=== PATIENT | female | born 1955 | race Hispanic/Latino ===

== ENCOUNTER → 2017-10-20 | Day surgery (SDC) | payer MEDICARE ==
--- NOTE | 2017-10-11 10:57 | Diagnostic Imaging Report ---
PROCEDURE: X-RAY CHEST, TWO VIEWS COMPARISON: Patients [facility], DX, CHEST SINGLE (NOT PORTABLE), 01/12/2017, 15:11. INDICATIONS: PRE OP ROTATOR CUFF FINDINGS: LUNGS: No consolidations or edema. Increased interstitial markings in the lung bases is unchanged. PLEURA: No effusions or pneumothorax. HEART \T\ MEDIASTINUM: The heart is within normal size-limits. BONES \T\ SOFT TISSUES: No acute findings. CONCLUSION: No acute thoracic abnormality. Manny Suero D.O. Dictated by: Manny Suero D.O. on 10/11/2017 at 11:06 Electronically approved by: Manny Suero D.O. on 10/11/2017 at 11:06
[2017-10-11 11:10] LABS: ANION GAP 8.1 mmol/L (8-16); CALCIUM 8.9 mg/dL (8.4-10.2); CREATININE, SERUM 1.03 mg/dL (0.57-1.11); POTASSIUM 4.1 mmol/L (3.5-5.1)
[~2017-10-20] MED LIST: AMBIEN10 MG PO; AMIODARONE HCL200 MG PO; AMLODIPINE BESYL5 MG PO; ASPIR 8181 MG PO; ASPIRIN EC81 MG PO; ASPIRIN325 MG PO; ATIVAN0.5 MG PO; ATROPINE SULFATE 1 MG/ML VIAL ONE; BENZONATATE100 MG PO; CLINDAMYCIN PHOS 900MG/ D5W 50 50 ML IV ONE; CLONAZEPAM1 MG PO; CORDARONE200 MG PO; COUMADIN5 MG PO; DEXAMETHASONE SOD PHOS INJ 4 MG/ML VIAL ONE; DIGOXIN125 MCG PO; EPHEDRINE SULFATE INJ 50 MG/10 ML SYR ONE; FENTANYL CITRATE/PF 100MCG/2 ML INJ ONE; HYDROCODONE PO; IBUPROFEN800 MG PO; KETOROLAC TROMETHAMINE 30 MG/ML VIAL ONE; KLONOPIN1 MG PO; LIDOCAINE HCL 2% LOCAL INJ 5 ML SDV VIAL INJ ONE; LOSARTAN POTASS50 MG PO; METFORMIN HCL500 MG PO; METOPROLOL TAR100 MG PO; METOPROLOL TART25 MG PO; MIDAZOLAM HCL 2 MG/2 ML VIAL ONE; MULTAQ400 MG PO; NORCO 10-325 T1 EACH PO; NORCO 5-325 TA1 EACH PO; OMEPRAZOLE40 MG PO; ONDANSETRON HCL INJ 2 MG/ML VIAL ONE; PEPCID20 MG PO; PHENYLEPHRINE HCL 1% 10 MG/ML VIAL ONE; PREDNISONE20 MG PO; PRILOSEC20 MG PO; PROPOFOL IV EMULSION 10 MG/ML 20 ML VIAL ONE; ROCURONIUM BROMIDE 10 MG/ML 5ML VIAL ONE; SEVOFLURANE INHAL SOLN 250 ML PEN BTL ONE; SUCCINYLCHOLINE 200 MG/10 ML SYR ONE; TRICOR145 MG PO; TYLENOL325 MG PO; ULTRAM 50MG50 MG PO; Z REQUIP PO; Z.0.AMLODIPINE BESY1 PO; Z.0.LOSARTAN POTAS10 PO; Z.0.SEROQUEL50 MG PO
--- NOTE | 2017-10-21 09:54 | Operative Report ---
DATE OF PROCEDURE: October 20, 2017 PREOPERATIVE DIAGNOSES 1. Left rotator cuff tear. 2. Left acromioclavicular joint arthrosis. POSTOPERATIVE DIAGNOSES 1. Chronic left shoulder rotator cuff tear. 2. Left shoulder biceps tendon tear. 3. Left shoulder synovitis. 4. Left shoulder acromioclavicular joint arthrosis. OPERATIONS/PROCEDURES PERFORMED 1. Patient underwent left shoulder examination under anesthesia. 2. Left shoulder arthroscopy. 3. Left shoulder arthroscopic debridement of synovitis. 4. Left shoulder arthroscopic biceps tenolysis. 5. Left shoulder arthroscopic rotator cuff reconstruction. 6. Left shoulder arthroscopic subacromial decompression and acromioplasty. 7. Left shoulder arthroscopic distal clavicle resection. [employer]END[employer] WORKER: Mara Baptiste ANESTHESIA: General endotracheal intubation anesthesia, as well as a regional block. BLOOD LOSS: Minimal. IV FLUIDS: As per the anesthesia record. BRIEF DESCRIPTION OF THE PATIENT'S OPERATIVE PROCEDURE: Mr. Rasmussen was taken to the operating room and placed in the supine position on the operating table. Following induction of general anesthesia, as well as endotracheal intubation, the patient was placed in a beach chair type position. The patient's left upper extremity was examined under anesthesia, and he was found to have only mild restrictions of range of motion of the left shoulder joint. There was no evidence of instability or mechanical symptoms during passive range of motion of the shoulder. The patient's upper extremity was prepped and draped in a standard surgical fashion. A standard posterolateral and anterior portals were created without difficulty. The scope was placed in the shoulder joint atraumatically. Examination of the glenohumeral articulation demonstrated no significant evidence of chondromalacia. There was diffuse synovitis in the shoulder joint. There were no loose bodies in the shoulder joint. Examination of the biceps tendon demonstrated a near complete intra-articular tear of the biceps tendon. There was also a large full-thickness rotator cuff tear with significant damage to the associated rotator cuff tissue. A shaver was placed in the shoulder joint and synovitis was debrided. The patient's biceps tendon was also further debrided at this time. Thorough probing of the biceps tendon demonstrated less than 10% of the fibers of the biceps tendon remained intact. The majority of the remaining biceps tendon had retracted outside the shoulder joint. The decision was therefore made to provide the patient a biceps tenolysis. A biter was used to release the biceps tendon from its attachment in the superior edge of the glenoid. The shaver was also used to debride the articular surface side of the rotator cuff tendon. Scar tissue was thus removed from the torn rotator cuff. The shaver was then used to debride the greater tuberosity and a thin tana remaining rotator cuff tissue was elevated from its attachment to the outer edge of the greater tuberosity. The bone was then scored to a bleeding bony bed. The shoulder was then deflated of its sterile normal saline. The scope was placed in the subacromial space and significant bursal inflammation was encountered. A lateral portal was created through an outside-in technique. A bursectomy was performed thus exposing the bursal surface of the rotator cuff injury. Again, significant injury to the rotator cuff was identified and further debridement of the rotator cuff was performed to obtain a healthy rotator cuff tissue. The insertion site was further debrided to a bleeding bony bed. Given the size of the tear, 2 suture anchors were inserted into the greater tuberosity, and the suture arms from those anchors were then woven through the rotator cuff tissue to advance the rotator cuff tissue into its normal insertion site. The rotator cuff was then thoroughly evaluated, and found to be firmly reattached to the tuberosity. There was a significantly downward sloping acromion with multiple osteophytes. A bur was used to provide the patient an acromioplasty at this time. The coracoacromial ligament was also resected at this time. The anterior portal was then transferred to the subacromial space at the level of the acromioclavicular joint. Soft tissues were debrided free from the acromioclavicular joint, and the patient had marked spurring of the undersurface of the acromion, as well as arthritic changes in the joint itself. A bur was then used to resect a 1-cm section of the distal clavicle. The scope was transferred to the anterior portal to confirm completion of the distal clavicectomy. The shoulder was then deflated of its sterile normal saline. The portal sites were closed. Sterile dressings were applied. The patient was placed in a shoulder immobilizer, awakened and taken to the postanesthesia care unit in stable condition. Mara Baptiste acted as assistant community manager for this case and was necessary for both prepping and draping the patient, as well as positioning the arm and the passage of sutures that allowed this case to be successful. STACIE: 10/21/2017 08:22 Job#: [id number] RI
== END | disposition home or self-care (01) ==
LOC: OR 08:29
PROVIDERS: ATTEND Specialist
DX: M75.122 Complete rotator cuff tear or rupture of left shoulder, not specified as traumatic (principal); M19.012 Primary osteoarthritis, left shoulder; S46.212A Strain of muscle, fascia and tendon of other parts of biceps, left arm, initial encounter; M65.812 Other synovitis and tenosynovitis, left shoulder; M25.712 Osteophyte, left shoulder; I25.10 Atherosclerotic heart disease of native coronary artery without angina pectoris; I48.91 Unspecified atrial fibrillation; E11.22 Type 2 diabetes mellitus with diabetic chronic kidney disease; I12.9 Hypertensive chronic kidney disease with stage 1 through stage 4 chronic kidney disease, or unspecified chronic kidney disease; N18.9 Chronic kidney disease, unspecified; G47.33 Obstructive sleep apnea (adult) (pediatric); J44.9 Chronic obstructive pulmonary disease, unspecified; F17.210 Nicotine dependence, cigarettes, uncomplicated; V03.90XA Pedestrian on foot injured in collision with car, pick-up truck or van, unspecified whether traffic or nontraffic accident, initial encounter; Z01.812 Encounter for preprocedural laboratory examination; Z01.818 Encounter for other preprocedural examination; Z79.82 Long term (current) use of aspirin
CPT/HCPCS: 29824; 29826; 29827; 36415 ×2; 71046; 80048; 82948; C1751; J0461; J1100; J1885; J2001; J2250; J2370; J2405

== ENCOUNTER 2018-05-18 10:28 | Inpatient (IN) | payer MEDICARE, OTHER ==
[~2018-05-18] VITALS: Ht 177.8 cm; Wt 120.5 kg
[~2018-05-18 10:28] MED LIST changes: -ATROPINE SULFATE 1 MG/ML VIAL ONE; -CLINDAMYCIN PHOS 900MG/ D5W 50 50 ML IV ONE; -DEXAMETHASONE SOD PHOS INJ 4 MG/ML VIAL ONE; -EPHEDRINE SULFATE INJ 50 MG/10 ML SYR ONE; -FENTANYL CITRATE/PF 100MCG/2 ML INJ ONE; -KETOROLAC TROMETHAMINE 30 MG/ML VIAL ONE; -LIDOCAINE HCL 2% LOCAL INJ 5 ML SDV VIAL INJ ONE; -MIDAZOLAM HCL 2 MG/2 ML VIAL ONE; -ONDANSETRON HCL INJ 2 MG/ML VIAL ONE; -PHENYLEPHRINE HCL 1% 10 MG/ML VIAL ONE; -PROPOFOL IV EMULSION 10 MG/ML 20 ML VIAL ONE; -ROCURONIUM BROMIDE 10 MG/ML 5ML VIAL ONE; -SEVOFLURANE INHAL SOLN 250 ML PEN BTL ONE; -SUCCINYLCHOLINE 200 MG/10 ML SYR ONE
[2018-05-18] MEDS ORDERED: DILTIAZEM HCL VIAL 5 ML ONE (10:40)
[2018-05-18] MEDS ORDERED: DILTIAZEM HCL 5 MG/ML 5 ML VIAL IV ONE (11:00)
[2018-05-18 11:23] LABS: BASOPHILS # (AUTO) 0.1 (0.0-0.1); BASOPHILS % 0.5 % (0.0-1.0); EOSINOPHILS # (AUTO) 0.1 (0.0-0.4); EOSINOPHILS % 0.9 % (0.0-6.0); HEMATOCRIT 48.7 % (38.2-49.6); HEMOGLOBIN 16.7 g/dL (14.0-18.0); LYMPHOCYTES # (AUTO) 2.8 (1.0-3.2); LYMPHOCYTES % 26.2 % (18.0-39.1); MEAN CORPUSCULAR HEMOGLOBIN 31.1 pg (28-32); MEAN CORPUSCULAR HGB CONC 34.3 g/dL (31-35); MEAN CORPUSCULAR VOLUME 90.7 fL (81-99); MONOCYTES # (AUTO) 0.9 (0.2-0.8); NEUTROPHILS # (AUTO) 6.8 (2.1-6.9); NEUTROPHILS % 64.1 % (38.7-80.0); PLATELET COUNT 330 x10e3/uL (140-360); RED BLOOD COUNT 5.37 x10e6/uL (4.3-5.7)
[2018-05-18 11:27] LABS: PROTHROMBIN TIME 12.4 seconds (11.9-14.5)
[2018-05-18 11:28] LABS: PARTIAL THROMBOPLASTIN TIME 25.4 seconds (23.8-35.5)
[2018-05-18 11:36] LABS: ALANINE AMINOTRANSFERASE 38 IU/L (0-55); ALKALINE PHOSPHATASE 65 IU/L (40-150); ANION GAP 17.6 mmol/L (8-16); BLOOD UREA NITROGEN 14 mg/dL (7-26); BUN/CREATININE RATIO 13 (6-25); CALCIUM 9.9 mg/dL (8.4-10.2); CARBON DIOXIDE 22 mmol/L (22-29); CHLORIDE 104 mmol/L (98-107); CREATINE KINASE 89 IU/L (30-200); CREATININE, SERUM 1.12 mg/dL (0.72-1.25); EST GLOMERULAR FILTRATION RATE > 60 ML/MIN (60-); GLUCOSE 162 mg/dL (74-118); MAGNESIUM 1.8 MG/DL (1.3-2.1); POTASSIUM 4.6 mmol/L (3.5-5.1); SODIUM 139 mmol/L (136-145)
--- NOTE | 2018-05-18 11:42 | Diagnostic Imaging Report ---
PROCEDURE: A single AP view of the chest. COMPARISON: Chest radiograph 10/11/17 INDICATIONS: CHEST PAIN FINDINGS: Lines/tubes: None. Lungs: Moderate lung volumes. Mild patchy left basilar opacity, likely atelectasis. There is no evidence of pneumonia or pulmonary edema. Pleura: There is no pleural effusion or pneumothorax. Heart and mediastinum: The cardiomediastinal silhouette is unremarkable. Bones: No acute bony abnormality. IMPRESSION: No acute cardiopulmonary disease. Dictated by: JEOVANNY VELA M.D. on 05/18/2018 at 11:48 Electronically approved by: JEOVANNY VELA M.D. on 05/18/2018 at 11:48
[2018-05-18] MEDS ORDERED: ASPIRIN 81 MG CHEW TAB PO ONE (12:15)
[2018-05-18] MEDS ORDERED: AMIODARONE HCL 900 MG in DEXTROSE 5% 500ML 500 ML IV ONE (12:30)
[2018-05-18] MEDS ORDERED: AMIODARONE HCL 150 MG/100 ML BAG IV ONE (12:30)
[2018-05-18] MEDS ORDERED: LOSARTAN POTAS100 MG PO (14:02)
[2018-05-18] MEDS ORDERED: METFORMIN HCL500 MG PO (14:02)
[2018-05-18 14:22] LABS: CHOL/HDL RATIO 2.5 (3.9-4.7)
[2018-05-18 14:42] LABS: THYROID STIMULATING HORMONE 2.051 uIU/mL (0.350-4.940)
[2018-05-18] MEDS: HYDROCODONE/APAP 10MG-325MG TAB PO PRN ×2 (15:03→20:45)
[2018-05-18] MEDS ORDERED: METOPROLOL TARTRATE INJ 1 MG/ML VIAL IV PRN (15:30)
[2018-05-18] MEDS: METOPROLOL TARTRATE 25 MG TAB PO SCH (15:48)
[2018-05-18] MEDS: FAMOTIDINE 20 MG TAB PO SCH (15:51)
[2018-05-18] MEDS: ENOXAPARIN SODIUM INJ 100 MG/ML SYR SC SCH (15:51)
--- NOTE | 2018-05-18 15:54 | History and Physical ---
PRIMARY CARE PHYSICIAN: Dr. Alanis. ELECTRONIC PLOTTING SYSTEM OPERATOR: Dr. Story. CHIEF COMPLAINT: Rapid heart rate, chest palpitation. HISTORY OF PRESENT ILLNESS: This is a 63-year-old man with history of paroxysmal atrial fibrillation, who underwent heart ablation 3 times in the past. Last ablation about 2 years ago. Now developing chest palpitation at home with chest discomfort. Family brought him to the hospital. Here, he was found to be in atrial fibrillation with rapid ventricular response. He was admitted for further evaluation and management. PAST MEDICAL HISTORY: Diabetes mellitus type 2, hypertension, sleep apnea not on CPAP, cigarette abuse, atrial fibrillation status post ablation times 3, last ablation 2 years ago, not on anticoagulation, right eye blindness, chronic back pain, GERD, insomnia, congestive heart failure which is likely diastolic, [id number] aortic regurgitation, and moderate pulmonary hypertension. PAST SURGICAL HISTORY: Back surgery times 8, left knee meniscus repair, rotator cuff repair, cardiac ablation times 3 for atrial fibrillation, right eye surgery. ALLERGIES: PER ELECTRONIC MEDICAL RECORD. FAMILY HISTORY/SOCIAL HISTORY: Patient lives with her friend. Has 5 children. No alcohol or illicits. He quit cigarettes 4 years ago. MEDICATIONS: Per electronic medical record. REVIEW OF SYSTEMS: Denies any dizziness, fever, chills, sweats, nausea, vomiting, diarrhea, leg pain, back pain, headache, blurred vision, or vision changes. PHYSICAL EXAMINATION VITAL SIGNS: Have been reviewed. GENERAL: A tired-appearing man resting in bed. HEENT: Anicteric. Pupils reactive to light. Right eye is opaque. CARDIOVASCULAR: Rapid heart rate. LUNGS: He has bilateral breath sounds. ABDOMEN: Soft, nontender and nondistended. EXTREMITIES: He has trace edema. SKIN: Dry. PSYCHIATRIC: Flat. NEUROLOGICAL: Alert and appropriate. Moving all extremities. LABS: Reviewed. MEDICATIONS: Reviewed. ASSESSMENT: This is a 63-year-old man with 1. Atrial fibrillation with rapid ventricular response. 2. Diabetes mellitus type 2. 3. Hypertension. 4. History of cigarette use. 5. Sleep apnea. 6. Gastroesophageal reflux disease. 7. Insomnia. 8. Chronic back pain. 9. Moderate pulmonary hypertension. 10. Tbxv-iz-mzfldzrr aortic regurgitation history. 11. Congestive heart failure likely diastolic. 12. Hyperlipidemia. 13. Insomnia. 14. Peripheral edema. 15. Obesity. Body mass index of 39.6. PLAN 1. Continue amiodarone. 2. Follow up echocardiogram. 3. Follow up cardiology recommendation. 4. Continue fenofibrate. 5. Obtain lipid panel. 6. Patient has mild peripheral edema. We will monitor. 7. Obtain TSH, hemoglobin A1c and lipid panel. 8. Caloric restriction. 9. Lifestyle changes outpatient. 10. We will add Pepcid for GI prophylaxis and I will defer anticoagulant needs to cardiology. Job#: [id number] VAS
--- NOTE | 2018-05-18 16:29 | Consultation ---
DATE OF CONSULTATION: May 18, 2018 CARDIOLOGY CONSULTATION REASON FOR CONSULTATION: AFib with RVR. REQUESTING PHYSICIAN: Dr. Oscar Ervin. HISTORY OF PRESENT ILLNESS: This is a pleasant, obese 63-year-old male that presented with palpitations. According to the patient, today he started having palpitation. He felt like his chest was about to jump out, that he decided to come into the emergency room for evaluation. He stated that he felt like he was going to pass out, accompanied with dizziness. He has a history of AFib, had ablation and cardioversion in the past, used to be on anticoagulation which was stopped. He stated also he has been going through a lot of stress at home and unable to sleep at night. He denied any chest pain, any diaphoresis or headache. Troponin was negative x1. BNP was 193, and chest x-ray showed no acute cardiopulmonary disease. PAST MEDICAL HISTORY: Hypertension, AFib status post ablation and cardioversion, CHF, diabetes, chronic back pain, COPD, obesity, insomnia and BPH. PAST SURGICAL HISTORY: Right eye surgery, prostate surgery, cardioversion and ablation in the past. FAMILY HISTORY: Noncontributory. SOCIAL HISTORY: Lives at home with the . No smoking, no drinking. MEDICATIONS: See med list. ALLERGIES: HE IS ALLERGIC TO CEFTRIAXONE AND IOHEXOL. REVIEW OF SYSTEMS: Negative except those mentioned above. He is positive for AFib with RVR. PHYSICAL EXAMINATION VITAL SIGNS: Temperature 97.8, heart rate 120, blood pressure 138/106, respiration 20, oxygen saturation 97% on 2 liters nasal cannula. GENERAL: He is morbidly obese, awake, alert, oriented x3. HEENT: Mucous membrane moist. NECK: Supple. LUNGS: Bilaterally clear to auscultation. CARDIOVASCULAR: Irregularly irregular. ABDOMEN: Soft. NEUROLOGICAL: Intact. EXTREMITIES: With no edema. LABS: Sodium 139, potassium 4.6, chloride 104, CO2 22, BUN 14, creatinine 1.12, glucose 162. White blood cell 10.57, red blood cell 5.37, hemoglobin 16.7, hematocrit 48.7, platelet 330. IMPRESSION 1. Atrial fibrillation with rapid ventricular response. 2. Diabetes. 3. Hypertension. 4. Obesity. 5. Hyperlipidemia. 6. History of anxiety and insomnia. 7. History of cardioversion and ablation in the past. ASSESSMENT/PLAN 1. Will go ahead and get an echocardiogram to assess the LV and the valve function. 2. Will check his TSH and magnesium. 3. Will continue on amiodarone drip. Will put him on Lovenox 1 mg/kg q.12 h. Will continue beta tika IV and p.o. 4. Further cardiac workup pending clinical course. Thank you for this consultation. Dictated by: Cuhck Alvarez NP Job#: [id number] EV
[2018-05-18 20:02] VITALS: BP 84/69
[2018-05-18 20:10] LABS: CREATINE KINASE MB 1.5 ng/mL (0-5.0)
[2018-05-18 21:00] VITALS: BP 84/69
[2018-05-18] MEDS ORDERED: CLONAZEPAM 1 MG TAB PO PRN (22:15)
[2018-05-18] MEDS: ZOLPIDEM TARTRATE 10 MG TAB PO SCH (23:55)
[2018-05-19] VITALS (8 sets, daily range): BP systolic 84–115; BP diastolic 52–92
[2018-05-19] MEDS: HYDROCODONE/APAP 10MG-325MG TAB PO PRN ×3 (02:38→21:39)
[2018-05-19] MEDS: ENOXAPARIN SODIUM INJ 100 MG/ML SYR SC SCH ×2 (04:00→16:30)
[2018-05-19 05:46] LABS: BASOPHILS # (AUTO) 0.1 (0.0-0.1); BASOPHILS % 0.8 % (0.0-1.0); EOSINOPHILS # (AUTO) 0.1 (0.0-0.4); EOSINOPHILS % 1.5 % (0.0-6.0); HEMATOCRIT 46.7 % (38.2-49.6); HEMOGLOBIN 15.7 g/dL (14.0-18.0); LYMPHOCYTES # (AUTO) 2.2 (1.0-3.2); LYMPHOCYTES % 28.5 % (18.0-39.1); MEAN CORPUSCULAR HEMOGLOBIN 31.3 pg (28-32); MEAN CORPUSCULAR HGB CONC 33.6 g/dL (31-35); MONOCYTES # (AUTO) 0.8 (0.2-0.8); MONOCYTES % 9.8 % (4.4-11.3); NEUTROPHILS # (AUTO) 4.6 (2.1-6.9); NEUTROPHILS % 58.4 % (38.7-80.0); PLATELET COUNT 264 x10e3/uL (140-360); RED BLOOD COUNT 5.02 x10e6/uL (4.3-5.7); RED CELL DISTRIBUTION WIDTH 13.2 % (11.7-14.4)
[2018-05-19 06:35] LABS: ALANINE AMINOTRANSFERASE 31 IU/L (0-55); ALBUMIN 3.4 g/dL (3.5-5.0); ALBUMIN/GLOBULIN RATIO 1.1 (0.8-2.0); ALKALINE PHOSPHATASE 57 IU/L (40-150); ANION GAP 13.6 mmol/L (8-16); BLOOD UREA NITROGEN 21 mg/dL (7-26); BUN/CREATININE RATIO 21 (6-25); CALCIUM 9.3 mg/dL (8.4-10.2); CARBON DIOXIDE 24 mmol/L (22-29); CHLORIDE 104 mmol/L (98-107); CREATINE KINASE 102 IU/L (30-200); CREATININE, SERUM 1.01 mg/dL (0.72-1.25); EST GLOMERULAR FILTRATION RATE > 60 ML/MIN (60-); GLUCOSE 149 mg/dL (74-118); POTASSIUM 3.6 mmol/L (3.5-5.1); SODIUM 138 mmol/L (136-145)
[2018-05-19] MEDS ORDERED: DIGOXIN INJ 0.25 MG/ML 2 ML AMP IV NR (08:15)
[2018-05-19] MEDS: FAMOTIDINE 20 MG TAB PO SCH ×2 (08:24→17:23)
[2018-05-19] MEDS: METOPROLOL TARTRATE 25 MG TAB PO SCH ×2 (08:24→17:24)
[2018-05-19] MEDS: AMIODARONE HCL 200 MG TAB PO SCH (08:24)
[2018-05-19] MEDS: FENOFIBRATE 145 MG TAB PO SCH (08:29)
[2018-05-19] MEDS ORDERED: DEXTROSE 50% SYRINGE 50 ML IV PRN (08:30)
--- NOTE | 2018-05-19 08:43 | Progress Note ---
DATE: May 19, 2018 TIME: 08:08 a.m. OVERNIGHT: No events. On amiodarone drip. REVIEW OF SYSTEMS: Denies any dizziness, chest pain, shortness of breath, fever, chills, sweats, nausea, vomiting, diarrhea, headache, back pain. PHYSICAL EXAMINATION: VITAL SIGNS: Reviewed. GENERAL APPEARANCE: Tired-appearing man resting in bed. HEENT: Anicteric. Right eye opaque. CARDIOVASCULAR: Normal S1 and S2. Rapid heart rate. LUNGS: Moderate breath sounds. ABDOMEN: Soft, nontender. EXTREMITIES: Trace edema. SKIN: Dry. PSYCHIATRIC: Flat affect. NEUROLOGICAL: Alert and appropriate. LABS: Reviewed. MEDICATIONS: Reviewed. ASSESSMENT: A 63-year-old man. 1. Atrial fibrillation with rapid ventricular response. 2. Diabetes mellitus type 2. Hemoglobin A1c is 6.6 and LDL 85. 3. Hypertension. 4. History of cigarette use. 5. Sleep apnea. 6. Gastroesophageal reflux disease. 7. Insomnia. 8. Chronic back pain. 9. Moderate pulmonary hypertension. 10. Congestive heart failure, diastolic. 11. Hyperlipidemia. 12. Peripheral edema. 13. Obesity. Body mass index 39.6. PLAN: 1. Continue amiodarone drip. 2. Weight loss outpatient. 3. Follow up echocardiogram. 4. Follow up cardiology recommendations. 5. TSH was normal. 6. Continue Lovenox treatment dose. Continue Pepcid for prophylaxis. Job#: [id number]
[2018-05-19] MEDS: INSULIN REGULAR, HUMAN 100 UNIT/1 ML 3ML VIAL SQ SCH ×3 (11:30→20:50)
[2018-05-19] MEDS ORDERED: DIGOXIN INJ 0.25 MG/ML 2 ML AMP IV ONE (12:45)
[2018-05-19] MEDS: CLONAZEPAM 1 MG TAB PO PRN (12:47)
[2018-05-19] MEDS: ZOLPIDEM TARTRATE 10 MG TAB PO SCH (20:49)
[2018-05-20] VITALS (9 sets, daily range): BP systolic 98–128; BP diastolic 68–92
[2018-05-20] MEDS: ENOXAPARIN SODIUM INJ 100 MG/ML SYR SC SCH (04:00)
[2018-05-20] MEDS: LIDOCAINE 5% PATCH TP SCH ×2 (04:40→07:50)
[2018-05-20] MEDS: FAMOTIDINE 20 MG TAB PO SCH ×2 (07:48→16:09)
[2018-05-20] MEDS: INSULIN REGULAR, HUMAN 100 UNIT/1 ML 3ML VIAL SQ SCH ×4 (07:59→22:25)
[2018-05-20] MEDS: FENOFIBRATE 145 MG TAB PO SCH (08:00)
[2018-05-20] MEDS: DIGOXIN 0.125 MG TAB PO SCH (08:00)
[2018-05-20] MEDS: METOPROLOL TARTRATE 25 MG TAB PO SCH ×2 (08:00→17:21)
[2018-05-20] MEDS: AMIODARONE HCL 200 MG TAB PO SCH (08:00)
[2018-05-20] MEDS: HYDROCODONE/APAP 10MG-325MG TAB PO PRN ×3 (09:39→22:02)
[2018-05-20] MEDS: CLONAZEPAM 1 MG TAB PO PRN (16:09)
[2018-05-20] MEDS: RIVAROXABAN 20 MG TABLET PO SCH (16:09)
--- NOTE | 2018-05-20 20:39 | Progress Note ---
DATE: May 20, 2018 TIME: 6 a.m. OVERNIGHT: Heart rate remains elevated at times. REVIEW OF SYSTEMS: Denies any dizziness, chest pain. Denies any nausea, vomiting, diarrhea, headache, blurred vision. PHYSICAL EXAMINATION VITAL SIGNS: Reviewed. GENERAL: A tired-appearing man resting in bed. HEENT: Anicteric. CARDIOVASCULAR: Normal S1 and S2. Rapid heart rate. LUNGS: Moderate breath sounds. ABDOMEN: Soft, nontender, nondistended. EXTREMITIES: No edema. SKIN: Dry. PSYCHIATRIC: Flat affect. LABS: Reviewed. MEDICATIONS: Reviewed. ASSESSMENT: A 63-year-old man. 1. Atrial fibrillation with rapid ventricular response. 2. Diabetes mellitus, type 2. Hemoglobin A1c is 6.6 and LDL 85. 3. Hypertension. 4. History of cigarette use. 5. Sleep apnea. 6. Gastroesophageal reflux disease. 7. Insomnia. 8. Chronic back pain. 9. Moderate pulmonary hypertension. 10. Congestive heart failure, diastolic. 11. Hyperlipidemia. 12. Peripheral edema. 13. Obesity. Body mass index 39.6. PLAN 1. Continue AV blocking agents. 2. Defer to cardiology regarding management. 3. TSH was normal. 4. Continue anticoagulant treatment dose. Job#: [id number]
[2018-05-20] MEDS: ZOLPIDEM TARTRATE 10 MG TAB PO SCH (22:30)
[2018-05-21] VITALS (8 sets, daily range): BP systolic 89–148; BP diastolic 68–104
[2018-05-21] MEDS: CLONAZEPAM 1 MG TAB PO PRN ×2 (00:15→14:06)
[2018-05-21] MEDS: METOPROLOL TARTRATE 25 MG TAB PO SCH ×5 (05:55→23:16)
[2018-05-21] MEDS: HYDROCODONE/APAP 10MG-325MG TAB PO PRN ×3 (05:56→23:10)
[2018-05-21] MEDS: INSULIN REGULAR, HUMAN 100 UNIT/1 ML 3ML VIAL SQ SCH ×4 (07:22→21:03)
[2018-05-21] MEDS: FAMOTIDINE 20 MG TAB PO SCH ×2 (07:48→16:29)
[2018-05-21] MEDS: AMIODARONE HCL 200 MG TAB PO SCH (08:01)
[2018-05-21] MEDS: DIGOXIN 0.125 MG TAB PO SCH (08:01)
[2018-05-21] MEDS: FENOFIBRATE 145 MG TAB PO SCH (08:01)
[2018-05-21] MEDS: LIDOCAINE 5% PATCH TP SCH (08:01)
[2018-05-21] MEDS: RIVAROXABAN 20 MG TABLET PO SCH (16:29)
[2018-05-21] MEDS: ZOLPIDEM TARTRATE 10 MG TAB PO SCH (23:16)
[2018-05-22] MEDS: HYDROCODONE/APAP 10MG-325MG TAB PO PRN ×3 (05:40→18:43)
[2018-05-22] MEDS: METOPROLOL TARTRATE 25 MG TAB PO SCH ×3 (05:43→17:37)
[2018-05-22 07:01] VITALS: BP 147/94
[2018-05-22] MEDS: INSULIN REGULAR, HUMAN 100 UNIT/1 ML 3ML VIAL SQ SCH ×4 (08:05→21:35)
[2018-05-22] MEDS: FAMOTIDINE 20 MG TAB PO SCH ×2 (08:05→17:37)
[2018-05-22] MEDS: DIGOXIN 0.125 MG TAB PO SCH (08:32)
[2018-05-22] MEDS: LIDOCAINE 5% PATCH TP SCH (08:32)
[2018-05-22] MEDS: FENOFIBRATE 145 MG TAB PO SCH (08:32)
[2018-05-22] MEDS: AMIODARONE HCL 200 MG TAB PO SCH (08:32)
[2018-05-22 09:13] VITALS: BP 147/94
--- NOTE | 2018-05-22 12:22 | Progress Note ---
DATE: Tuesday, May 22, 2018 TIME: 11:15 a.m. OVERNIGHT: No acute events. Patient with intermittent tachycardia with exertion. Afib continues. REVIEW OF SYSTEMS: The patient denies dizziness, chest pain. Slight shortness of breath upon exertion. Denies nausea, vomiting, diarrhea, headache, blurry vision or claudication. PHYSICAL EXAMINATION VITAL SIGNS: T 97.7, P 92, R 17, SpO2 96% on RA. GENERAL APPEARANCE: This is a tired-appearing man sitting on side of bed. HEENT: Normocephalic. Oral mucosa moist and intact. Trachea is midline. No JVD. CV: S1 and S2 auscultated without clicks, murmurs or rubs. Irregular rate noted. LUNGS: Bilateral breath sounds CTA with moderate excursion. ABDOMEN: Soft, nontender, nondistended. EXTREMITIES: No edema. SKIN: Dry. PSYCHIATRIC: Flat affect. LABS: Reviewed. MEDICATIONS 1. Amiodarone 400 mg p.o. daily. 2. Lidocaine patch daily. 3. Digoxin 0.125 mg q.a.m. 4. TriCor 145 p.o. daily. 5. Sliding-scale regular insulin a.c. and at bedtime. 6. Pepcid 20 mg b.i.d. a.c. meals. 7. Metoprolol 12.5 q.6 h. p.o. 8. P.R.N. [place] 10. 9. P.R.N. Ambien. 10. Xarelto 20 mg daily at 5 p.m. 11. P.R.N. Klonopin. 12. P.R.N. metoprolol. 13. P.R.N. D50. ASSESSMENT AND PLAN: This is a 63-year-old man with: 1. Atrial fibrillation with rapid ventricular response. Continue amiodarone, digoxin, metoprolol and defer to cardiology for management. 2. Diabetes mellitus, type 2. Admission A1c was 6.6 and LDL 85. Continue TriCor. 3. Hypertension. Continue medications. 4. History of cigarette use. 5. Sleep apnea. I discussed at length with the family the possibility of CPAP. The spouse and the patient indicated some problem with insurance coverage. Follow up as outpatient. 6. Gastroesophageal reflux disease. Pepcid. 7. Insomnia. P.R.N. Ambien. 8. Chronic back pain. P.R.N. [place]. 9. Moderate pulmonary hypertension. 10. Congestive heart failure, diastolic. Monitor I and O. 11. Hyperlipidemia. TriCor. 12. Peripheral edema. Monitor. 13. Obesity. Body mass index 39.6. Outpatient calorie count. The patient would benefit significantly from weight loss. 14. Prophylaxis: Patient is to continue with Pepcid and Xarelto. 15. Disposition: Discussed at length with the patient, spouse and RN. Possible SAVITA with cardioversion pending tomorrow, 05/23/2018. If successful, the patient can continue treatment as an outpatient per cardiology recommendations. We will obtain a.m. labs prior to procedure in a.m. Dictated by Jacki Zhao NP. Job#: [id number]
[2018-05-22 12:37] VITALS: BP 135/97
[2018-05-22 16:30] VITALS: BP 117/94
[2018-05-22] MEDS: RIVAROXABAN 20 MG TABLET PO SCH (17:37)
[2018-05-22 20:00] VITALS: BP 101/79
[2018-05-22] MEDS: ZOLPIDEM TARTRATE 10 MG TAB PO SCH (21:35)
[2018-05-22 22:10] VITALS: BP 101/79
[2018-05-23] VITALS (8 sets, daily range): BP systolic 115–180; BP diastolic 81–103
[2018-05-23] MEDS: METOPROLOL TARTRATE 25 MG TAB PO SCH ×4 (00:35→16:16)
[2018-05-23 04:55] LABS: BASOPHILS # (AUTO) 0.1 (0.0-0.1); BASOPHILS % 0.6 % (0.0-1.0); EOSINOPHILS # (AUTO) 0.1 (0.0-0.4); HEMATOCRIT 46.5 % (38.2-49.6); HEMOGLOBIN 15.9 g/dL (14.0-18.0); LYMPHOCYTES # (AUTO) 2.7 (1.0-3.2); LYMPHOCYTES % 29.8 % (18.0-39.1); MEAN CORPUSCULAR HEMOGLOBIN 31.5 pg (28-32); MEAN CORPUSCULAR HGB CONC 34.2 g/dL (31-35); MEAN CORPUSCULAR VOLUME 92.1 fL (81-99); MONOCYTES # (AUTO) 0.9 (0.2-0.8); MONOCYTES % 9.7 % (4.4-11.3); NEUTROPHILS # (AUTO) 5.2 (2.1-6.9); NEUTROPHILS % 58.6 % (38.7-80.0); PLATELET COUNT 295 x10e3/uL (140-360); RED BLOOD COUNT 5.05 x10e6/uL (4.3-5.7); RED CELL DISTRIBUTION WIDTH 13.3 % (11.7-14.4)
[2018-05-23 05:27] LABS: ALBUMIN 3.7 g/dL (3.5-5.0); ALBUMIN/GLOBULIN RATIO 1.1 (0.8-2.0); ANION GAP 12.9 mmol/L (8-16); CALCIUM 9.9 mg/dL (8.4-10.2); CREATININE, SERUM 1.29 mg/dL (0.72-1.25); POTASSIUM 4.9 mmol/L (3.5-5.1)
[2018-05-23] MEDS: CLONAZEPAM 1 MG TAB PO PRN ×3 (05:35→21:01)
[2018-05-23] MEDS ORDERED: SODIUM CHLORIDE 0.45% 1,000 ML IV ONE (06:30)
[2018-05-23] MEDS: FAMOTIDINE 20 MG TAB PO SCH ×2 (07:30→16:16)
[2018-05-23] MEDS: INSULIN REGULAR, HUMAN 100 UNIT/1 ML 3ML VIAL SQ SCH ×4 (07:30→21:00)
[2018-05-23] MEDS: FENOFIBRATE 145 MG TAB PO SCH (09:00)
[2018-05-23] MEDS: LIDOCAINE 5% PATCH TP SCH (09:23)
[2018-05-23] MEDS ORDERED: BENZOCAINE 20% SPR 60 ML CAN ONE (12:18)
[2018-05-23] MEDS ORDERED: SODIUM CHLORIDE 0.9% 1000ML 1,000 ML ONE (13:10)
[2018-05-23] MEDS ORDERED: PROPOFOL IV EMULSION 10 MG/ML 20 ML VIAL ONE (14:07)
[2018-05-23] MEDS: RIVAROXABAN 20 MG TABLET PO SCH (16:16)
[2018-05-23] MEDS: AMIODARONE HCL 200 MG TAB PO SCH (16:16)
[2018-05-23] MEDS: DIGOXIN 0.125 MG TAB PO SCH (16:16)
[2018-05-23] MEDS: HYDROCODONE/APAP 10MG-325MG TAB PO PRN ×2 (16:30→22:35)
[2018-05-23] MEDS ORDERED: MIDAZOLAM HCL 2 MG/2 ML VIAL ONE (19:57)
[2018-05-23] MEDS: ZOLPIDEM TARTRATE 10 MG TAB PO SCH (23:46)
[2018-05-24] VITALS: BP 154/72
[2018-05-24 04:00] VITALS: BP 186/89
[2018-05-24] MEDS: HYDROCODONE/APAP 10MG-325MG TAB PO PRN ×2 (04:51→10:20)
[2018-05-24] MEDS: METOPROLOL TARTRATE 25 MG TAB PO SCH ×3 (06:00→12:00)
[2018-05-24] MEDS ORDERED: HYDRALAZINE HCL 20 MG/ML VIAL IV PRN (07:00)
[2018-05-24 07:09] LABS: BASOPHILS % 0.4 % (0.0-1.0); EOSINOPHILS # (AUTO) 0.1 (0.0-0.4); HEMATOCRIT 41.3 % (38.2-49.6); HEMOGLOBIN 14.2 g/dL (14.0-18.0); LYMPHOCYTES # (AUTO) 1.6 (1.0-3.2); LYMPHOCYTES % 23.2 % (18.0-39.1); MEAN CORPUSCULAR HGB CONC 34.4 g/dL (31-35); MONOCYTES # (AUTO) 0.7 (0.2-0.8); MONOCYTES % 10.7 % (4.4-11.3); NEUTROPHILS # (AUTO) 4.5 (2.1-6.9); NEUTROPHILS % 64.3 % (38.7-80.0); PLATELET COUNT 237 x10e3/uL (140-360); RED BLOOD COUNT 4.44 x10e6/uL (4.3-5.7); RED CELL DISTRIBUTION WIDTH 13.3 % (11.7-14.4)
[2018-05-24 07:24] LABS: ANION GAP 12.4 mmol/L (8-16); CALCIUM 9.6 mg/dL (8.4-10.2); CREATININE, SERUM 1.3 mg/dL (0.72-1.25); POTASSIUM 4.4 mmol/L (3.5-5.1)
[2018-05-24 08:00] VITALS: BP 155/70
[2018-05-24] MEDS ORDERED: LOSARTAN POTASSIUM 100 MG TAB PO SCH (09:00)
[2018-05-24] MEDS: DIGOXIN 0.125 MG TAB PO SCH (09:20)
[2018-05-24] MEDS: LIDOCAINE 5% PATCH TP SCH (09:20)
[2018-05-24] MEDS: AMIODARONE HCL 200 MG TAB PO SCH (09:20)
[2018-05-24] MEDS: FENOFIBRATE 145 MG TAB PO SCH (09:20)
[2018-05-24] MEDS: FAMOTIDINE 20 MG TAB PO SCH (09:21)
[2018-05-24] MEDS: INSULIN REGULAR, HUMAN 100 UNIT/1 ML 3ML VIAL SQ SCH ×2 (09:21→11:30)
[2018-05-24 10:01] VITALS: BP 155/70
--- NOTE | 2018-05-24 10:20 | Operative Report ---
DATE OF PROCEDURE: May 23, 2018 PROCEDURES PERFORMED: 05 23. TRANSESOPHAGEAL ECHOCARDIOGRAM INDICATIONS: Rule out thrombus prior to cardioversion. DESCRIPTION OF PROCEDURE: After informed consent, the patient was brought to the endoscopy suite. His throat was sprayed with Cetacaine spray. The patient was anesthetized by the anesthesiologist. Transesophageal probe was passed without any difficulty and images were obtained in the usual fashion. The patient tolerated the procedure without any complications. REPORT LEFT VENTRICLE: Normal size and systolic function. Overall estimated ejection fraction appears to be at 55%. LEFT ATRIUM: Is of normal size. Left atrium is dilated. No spontaneous echocontrast or thrombus is seen in the left atrium or left atrial appendage. RIGHT ATRIUM: Normal size. RIGHT VENTRICLE: Normal size and function. MITRAL VALVE: Is mildly thickened with valvular excursion. No significant mitral regurgitation is noted. No vegetations are noted. AORTIC VALVE: Calcified with adequate valvular excursion. No significant aortic regurgitation is noted. No vegetations are noted. TRICUSPID VALVE: Structurally normal intact valve excursion. Trivial tricuspid regurgitation is noted. No vegetations are noted. PULMONIC VALVE: This is seen as structurally normal. No pulmonic regurgitation is noted. No vegetations are noted. No pericardial effusion is noted. No left to right shunt is seen on color flow. No right to left shunt is seen on contrast injection across the intra-atrial septum. AORTA: Mild atherosclerotic plaquing of the aorta is noted. CONCLUSIONS 1. Left ventricle normal size and systolic function. 2. The overall estimated ejection fraction is about 55%. 3. No significant regurgitant lesions noted. 4. No intracardiac thrombi or vegetations noted. Job#: [id number] SILVER
--- NOTE | 2018-05-24 11:03 | Operative Report ---
DATE OF PROCEDURE: PROCEDURES: Synchronized cardioversion. INDICATIONS: Atrial flutter. DESCRIPTION OF PROCEDURE: After informed consent, the patient was brought to the endoscopy suite. He underwent transesophageal echocardiogram, which showed no thrombus. Paddles were placed on the patient's chest. The patient was given 75 joules of synchronized shock. He was cardioverted to sinus rhythm at 75 joules. Patient tolerated the procedure without any complications. Job#: [id number] SILVER
[2018-05-24] MEDS ORDERED: AMIODARONE HCL200 MG PO (11:17)
[2018-05-24] MEDS ORDERED: AMIODARONE IV (11:17)
[2018-05-24] MEDS ORDERED: XARELTO20 MG PO (11:18)
--- NOTE | 2018-05-24 20:49 | Progress Note ---
DATE: May 23, 2018 TIME: 8:00 a.m. OVERNIGHT: No events. REVIEW OF SYSTEMS: Denies any dizziness, chest pain, shortness of breath, fever, chills, sweats, nausea, vomiting, diarrhea. PHYSICAL EXAMINATION: VITAL SIGNS: Reviewed. GENERAL APPEARANCE: Tired-appearing man resting in bed. HEENT: Anicteric. CARDIOVASCULAR: Normal S1 and S2. LUNGS: Moderate breath sounds. ABDOMEN: Soft, nontender, nondistended. EXTREMITIES: No edema. SKIN: Dry. PSYCHIATRIC: Flat affect. LABS: Reviewed. MEDICATIONS: Reviewed. ASSESSMENT: A 63-year-old man. 1. Atrial fibrillation with rapid ventricular response. 2. Diabetes mellitus type 2. Hemoglobin A1c is 6.8, LDL 85. 3. Hypertension. 4. History of cigarette use. 5. Sleep apnea. 6. Gastroesophageal reflux disease. 7. Insomnia. 8. Chronic back pain. 9. Moderate pulmonary hypertension. 10. Congestive heart failure, diastolic. 11. Hyperlipidemia. 12. Peripheral edema. 13. Obesity. Body mass index 39.6. PLAN: 1. Electrocardioversion planned. 2. Continue AV blocking agent. 3. Continue current care and follow up after cardioversion. 4. Patient also on anticoagulants. Job#: [id number]
--- NOTE | 2018-05-24 20:54 | Discharge Summary ---
PRINCIPAL DIAGNOSES 1. Atrial fibrillation with rapid ventricular response, status post electrical cardioversion. 2. Diabetes mellitus type 2, hemoglobin A1c 6.6, LDL 85. 3. Moderate pulmonary hypertension. 4. Congestive heart failure, diastolic. 5. Obesity, body mass index 39.6. 6. Peripheral edema. SECONDARY DIAGNOSES 1. Congestive heart failure, diastolic. 2. Atrial fibrillation. CHIEF COMPLAINT: Chest palpitation. HISTORY OF PRESENT ILLNESS: A 63-year-old male with chest palpitation. Refer to H and P for further details. HOSPITAL COURSE: The patient has atrial fibrillation with rapid ventricular response. Received amiodarone and other blocking agents without resolution, therefore, underwent an electrical cardioversion with resolution. The patient also had diastolic congestive heart failure which was relatively euvolemic. He had obesity, BMI 39.6. The patient did well. Subsequent transition home with medication regimen per the cardiology. DISCHARGE MEDICATIONS: Per electronic medical record. FOLLOWUP 1. Primary care doctor in 1 week. 2. Cardiology in 2 weeks. CONDITION IN DISCHARGE: Stable and improving. DISCHARGE LOCATION: Home. SANDEEP GARCIA MD Job#: [id number] KEELEY
== END 2018-05-24 12:53 | disposition home or self-care (01) | DRG 309 ==
LOC: ER 10:28 → EDSEX 10:28 → ERHOLD 12:15 → IMCU 18:46 → MED/SURG 05-23 20:13
PROVIDERS: ADMIT Internal Medicine; ATTEND Internal Medicine
PROC: B24BZZ4 Ultrasonography of Heart with Aorta, Transesophageal (ICD-10-PCS; principal; 2018-05-23)
PROC: 5A2204Z Restoration of Cardiac Rhythm, Single (ICD-10-PCS; 2018-05-24)
DX: I48.91 Unspecified atrial fibrillation (principal); I50.30 Unspecified diastolic (congestive) heart failure; E11.9 Type 2 diabetes mellitus without complications; I11.0 Hypertensive heart disease with heart failure; E66.9 Obesity, unspecified; Z68.39 Body mass index [BMI] 39.0-39.9, adult; J44.9 Chronic obstructive pulmonary disease, unspecified; N40.0 Benign prostatic hyperplasia without lower urinary tract symptoms; Z79.4 Long term (current) use of insulin; F41.9 Anxiety disorder, unspecified; E78.5 Hyperlipidemia, unspecified; G47.00 Insomnia, unspecified; I27.20 Pulmonary hypertension, unspecified; G89.29 Other chronic pain; K21.9 Gastro-esophageal reflux disease without esophagitis; Z87.891 Personal history of nicotine dependence; I35.1 Nonrheumatic aortic (valve) insufficiency; G47.30 Sleep apnea, unspecified
CPT/HCPCS: 36415; 71045; 80048; 80053; 80061; 82550; 82553; 82948; 83036; 83735; 83880; 84443; 84484; 85025; 85610; 85730; 92960; 93005; 93306; 93312; 93320; 93325; 96361; 96366; 96372; 99284; J1160; J1650; J2250; J7030; J7060

== ENCOUNTER 2019-08-03 10:42 | Inpatient (IN) | payer MEDICARE, OTHER ==
[2019-08-03] VITALS (13 sets, daily range): BP systolic 116–153; BP diastolic 64–110
[~2019-08-03] VITALS: Ht 182.9 cm; Wt 122.5 kg
[~2019-08-03 10:42] MED LIST changes: +AMIODARONE IV; +LOSARTAN POTAS100 MG PO; +XARELTO20 MG PO
[2019-08-03] MEDS ORDERED: AMIODARONE HCL 150 MG/100 ML BAG IV ONE (11:00)
[2019-08-03] MEDS ORDERED: DILTIAZEM HCL VIAL 5 ML ONE (11:13)
[2019-08-03 11:28] LABS: BASOPHILS # (AUTO) 0.1 (0.0-0.1); BASOPHILS % 0.4 % (0.0-1.0); EOSINOPHILS % 0.4 % (0.0-6.0); HEMATOCRIT 48.9 % (38.2-49.6); LYMPHOCYTES # (AUTO) 1.5 (1.0-3.2); LYMPHOCYTES % 13.3 % (18.0-39.1); MEAN CORPUSCULAR HEMOGLOBIN 30.7 pg (28-32); MEAN CORPUSCULAR HGB CONC 34.8 g/dL (31-35); MEAN CORPUSCULAR VOLUME 88.4 fL (81-99); MONOCYTES # (AUTO) 0.9 (0.2-0.8); MONOCYTES % 8.2 % (4.4-11.3); NEUTROPHILS # (AUTO) 8.6 (2.1-6.9); NEUTROPHILS % 77.3 % (38.7-80.0); PLATELET COUNT 340 x10e3/uL (140-360); RED BLOOD COUNT 5.53 x10e6/uL (4.3-5.7); RED CELL DISTRIBUTION WIDTH 12.4 % (11.7-14.4)
[2019-08-03 11:52] LABS: ALANINE AMINOTRANSFERASE 36 IU/L (0-55); ALBUMIN 4.2 g/dL (3.5-5.0); ALBUMIN/GLOBULIN RATIO 1.2 (0.8-2.0); ALKALINE PHOSPHATASE 71 IU/L (40-150); ANION GAP 17.3 mmol/L (8-16); BLOOD UREA NITROGEN 23 mg/dL (7-26); BUN/CREATININE RATIO 13 (6-25); CALCIUM 10.2 mg/dL (8.4-10.2); CARBON DIOXIDE 25 mmol/L (22-29); CHLORIDE 100 mmol/L (98-107); CREATINE KINASE 665 IU/L (30-200); CREATININE, SERUM 1.77 mg/dL (0.72-1.25); EST GLOMERULAR FILTRATION RATE 39 ML/MIN (60-); GLUCOSE 208 mg/dL (74-118); POTASSIUM 4.3 mmol/L (3.5-5.1); SODIUM 138 mmol/L (136-145)
--- NOTE | 2019-08-03 11:55 | Diagnostic Imaging Report ---
Chest, 1 view, 08/03/2019. History: Chest pressure. Comparison: None available. Findings: The cardiomediastinal silhouette and pulmonary vasculature are within normal limits for a portable exam. There is no focal consolidation or pleural effusion. There are no acute osseous or soft tissue abnormalities. Impression: No acute cardiopulmonary abnormality. Signed by: Damon Martinez on 08/03/2019 11:51 AM
[2019-08-03] MEDS ORDERED: HYDROCODON-ACE1 EAC9 PO (12:05)
[2019-08-03] MEDS ORDERED: AMIODARONE HCL 150 MG in DEXTROSE 5% 100ML 100 ML IV SCH (12:10)
[2019-08-03] MEDS ORDERED: AMIODARONE HCL 900 MG in DEXTROSE 5% 500ML 500 ML IV STA (13:10)
[2019-08-03] MEDS: AMIODARONE 900MG 500 ML IV SCH (13:29)
[2019-08-03] MEDS: HYDROCODONE/APAP 10MG-325MG TAB PO PRN ×2 (15:23→21:37)
[2019-08-03] MEDS: CLONAZEPAM 1 MG TAB PO PRN ×2 (16:20→23:10)
[2019-08-03] MEDS: METOPROLOL TARTRATE 25 MG TAB PO SCH (18:55)
[2019-08-03 19:37] LABS: CREATINE KINASE MB 7.7 ng/mL (0-5.0)
[2019-08-03 23:57] LABS: CREATINE KINASE MB 8.8 ng/mL (0-5.0)
[2019-08-04] VITALS (16 sets, daily range): BP systolic 99–162; BP diastolic 61–101
--- NOTE | 2019-08-04 01:19 | Consultation ---
DATE OF CONSULTATION: 08/03/2019 Cardiology Consultation REASON FOR CONSULT: Atrial fibrillation with RVR, CHF. CHIEF COMPLAINT: Palpitations and shortness of breath. HISTORY OF PRESENT ILLNESS: The patient is a 64-year-old man, known to our clinic. He has long history of atrial fibrillation with RVR. Has had three previous ablations and multiple cardioversions as well. Presented to the office this morning with rapid atrial fibrillation, heart rates in the 160s to 170s with shortness of breath, weakness, and dizziness. He also has chronic systolic CHF, EF 30%. Denies any chest pain. Currently, was placed on amiodarone and heart rate is now improved to 100 to 110s, still feeling some palpitations and some mild shortness of breath. No dizziness or syncope. REVIEW OF SYSTEMS: As per HPI, otherwise negative. PAST MEDICAL HISTORY: 1. Chronic systolic congestive heart failure. 2. Atrial fibrillation, status post multiple ablation. 3. Hypertension. 4. Chronic kidney disease. 5. Diabetes. SOCIAL HISTORY: Does not smoke, drink, or abuse drugs. FAMILY HISTORY: Noncontributory. OUTPATIENT MEDICATIONS: List reviewed. ALLERGIES: REVIEWED. PLEASE SEE MAR BLOOD. OBJECTIVE: VITAL SIGNS: Temperature afebrile, pulse 109, respiratory rate 18, blood pressure 106/65, and saturating 95% on room air. GENERAL: man, well developed, and well nourished, in no acute distress. CARDIOVASCULAR: Irregular rate and rhythm. Tachycardic. No murmurs, rubs, or gallops LUNGS: Clear to auscultation bilaterally. ABDOMEN: Soft, nontender, and nondistended. Obese. NEURO AND PSYCH: Alert and oriented to person, place, and time. Normal affect. INPATIENT MEDICATIONS: Reviewed. LABORATORY DATA: Reviewed. TELEMETRY DATA: Reviewed, shows atrial fibrillation with RVR. ASSESSMENT: 1. Atrial fibrillation with rapid ventricular response. 2. Chronic systolic congestive heart failure, ejection fraction less than 30%. PLAN: Continue IV amiodarone. We will resume some of his home cardiac medications as blood pressure tolerates. Plan for biventricular ICD placement tomorrow. Possible cardioversion. Thank you for this consult. We will continue to follow. MD TOAN GreenbergP/YAHAIRA /[id number]
[2019-08-04 05:31] LABS: CREATINE KINASE MB 5.7 ng/mL (0-5.0)
[2019-08-04 06:16] LABS: BASOPHILS % 0.4 % (0.0-1.0); EOSINOPHILS # (AUTO) 0.2 (0.0-0.4); EOSINOPHILS % 1.6 % (0.0-6.0); HEMATOCRIT 45.8 % (38.2-49.6); HEMOGLOBIN 15.7 g/dL (14.0-18.0); LYMPHOCYTES # (AUTO) 2.2 (1.0-3.2); MEAN CORPUSCULAR HEMOGLOBIN 30.4 pg (28-32); MEAN CORPUSCULAR HGB CONC 34.3 g/dL (31-35); MEAN CORPUSCULAR VOLUME 88.8 fL (81-99); MONOCYTES % 10.2 % (4.4-11.3); NEUTROPHILS # (AUTO) 6.6 (2.1-6.9); NEUTROPHILS % 65.3 % (38.7-80.0); PLATELET COUNT 336 x10e3/uL (140-360); RED BLOOD COUNT 5.16 x10e6/uL (4.3-5.7); RED CELL DISTRIBUTION WIDTH 12.5 % (11.7-14.4)
--- NOTE | 2019-08-04 06:17 | NUR ---
Dr. King notified of troponins. states no need to continue cardiac marker labs.
[2019-08-04 06:25] LABS: CALCIUM 10.1 mg/dL (8.4-10.2); CREATININE, SERUM 1.25 mg/dL (0.72-1.25)
[2019-08-04] MEDS: METFORMIN HCL 500 MG TAB PO SCH ×2 (08:00→08:50)
[2019-08-04] MEDS: FENOFIBRATE 145 MG TAB PO SCH (08:50)
[2019-08-04] MEDS: LOSARTAN POTASSIUM 100 MG TAB PO SCH (08:50)
[2019-08-04] MEDS: METOPROLOL TARTRATE 25 MG TAB PO SCH ×2 (08:50→17:00)
[2019-08-04] MEDS: HYDROCODONE/APAP 10MG-325MG TAB PO PRN ×2 (09:00→15:08)
--- NOTE | 2019-08-04 09:03 | NUR ---
H&P PRIMARY CARE PHYSICIAN: Dr. Alanis. PLASTER MACHINE OPERATOR: Dr. Story. CHIEF COMPLAINT: A.fib with RVR. HISTORY OF PRESENT ILLNESS: This is a 64 yoM, developed rapid HR. now HR improving on amio; plans for AICD placement. PAST MEDICAL HISTORY: Diabetes mellitus type 2, hypertension, sleep apnea not on CPAP, cigarette abuse, atrial fibrillation status post ablation times 3, last ablation 2 years ago, not on anticoagulation, right eye blindness, chronic back pain, GERD, insomnia, congestive heart failure -diastolic, [id number] aortic regurgitation, and moderate pulmonary hypertension. PAST SURGICAL HISTORY: Back surgery times 8, left knee meniscus repair, rotator cuff repair, cardiac ablation times 3 for atrial fibrillation, right eye surgery. ALLERGIES: PER ELECTRONIC MEDICAL RECORD. FAMILY HISTORY/SOCIAL HISTORY: Patient lives with her friend. Has 5 children. No alcohol or illicits. He quit cigarettes 4 years ago. MEDICATIONS: Per electronic medical record. REVIEW OF SYSTEMS: Denies any dizziness, fever, chills, sweats, nausea, vomiting, diarrhea, leg pain, back pain, headache, blurred vision, or vision changes. PHYSICAL EXAMINATION VITAL SIGNS: Have been reviewed. GENERAL: A tired-appearing man resting in bed. HEENT: Anicteric. Pupils reactive to light. Right eye is opaque. CARDIOVASCULAR: Rapid heart rate. LUNGS: He has bilateral breath sounds. ABDOMEN: Soft, nontender and nondistended. EXTREMITIES: He has trace edema. SKIN: Dry. PSYCHIATRIC: Flat. NEUROLOGICAL: Alert and appropriate. Moving all extremities. LABS: Reviewed. MEDICATIONS: Reviewed. ASSESSMENT: This is a 63-year-old man with A.fib with RVR DM2 HTN GERD Diastolic CHF HLD Mild-mod AR Obesity BMI 38 PLAN AV blockade with BB and amio Cardio eval hab1c/lipids AICD pending; CCT>35mins Oscar Ervin MD, PhD.
[2019-08-04] MEDS: CLONAZEPAM 1 MG TAB PO PRN (09:30)
--- NOTE | 2019-08-04 10:00 | NUR ---
Dr Kerline King to bedside; paged [facility] to inquire of plan as patient would like to drink coffee.
[2019-08-04 10:03] LABS: CHOL/HDL RATIO 3.6 (3.9-4.7)
[2019-08-04] MEDS: ZOLPIDEM TARTRATE 10 MG TAB PO PRN ×2 (11:45→23:45)
[2019-08-04] MEDS ORDERED: MIDAZOLAM HCL 2 MG/2 ML VIAL ONE ×3 (14:23→16:25)
[2019-08-04] MEDS ORDERED: LIDOCAINE 1% W/EPINEPHRINE 20 ML VIAL ONE (14:23)
[2019-08-04] MEDS ORDERED: SODIUM CHLORIDE 0.9% 1000ML 2,000 ML ONE (14:24)
[2019-08-04] MEDS ORDERED: BACITRACIN 50,000 UNIT VIAL ONE (14:24)
[2019-08-04] MEDS ORDERED: FENTANYL CITRATE/PF 100MCG/2 ML INJ ONE ×2 (14:24→16:25)
[2019-08-04] MEDS ORDERED: DIPHENHYDRAMINE HCL INJ 50 MG/ML VIAL ONE (15:22)
[2019-08-04] MEDS ORDERED: METHYLPREDNISOLONE SOD SUCC 125 MG/2ML VIAL ONE (15:22)
[2019-08-04] MEDS ORDERED: FAMOTIDINE 20 MG/2 ML VIAL IV ONE (15:23)
[2019-08-04] MEDS ORDERED: VANCOMYCIN 1GM/NS 250 ML 250 ML ONE (15:23)
[2019-08-04] MEDS ORDERED: SODIUM CHLORIDE 0.9% 1000ML 1,000 ML ONE (15:47)
[2019-08-04] MEDS ORDERED: IOPAMIDOL 300MG/ML 100 ML INFUS..BTL IV ONE (15:47)
[2019-08-04] MEDS ORDERED: LIDOCAINE HCL 2% LOCAL 20 ML VIAL ONE (16:22)
[2019-08-04] MEDS: AMIODARONE 900MG 500 ML IV SCH ×2 (17:14→18:50)
[2019-08-04] MEDS ORDERED: ACETAMINOPHEN/CODEINE 300MG - 30MG TAB PO PRN (18:00)
[2019-08-04] MEDS: AMIODARONE HCL 200 MG TAB PO SCH (18:45)
--- NOTE | 2019-08-04 18:49 | Diagnostic Imaging Report ---
EXAMINATION: CHEST SINGLE (PORTABLE) COMPARISON: Chest x-ray 08/03/2019 INDICATION: ^s/p BIV AICD ^[id number] ^1834 DISCUSSION: Frontal view of the chest obtained at 1834 hours. HEART AND MEDIASTINUM: Stable cardiomegaly LINES: Pacer/defibrillator leads terminate terminates in the right ventricle and coronary sinus without disruption. No pneumothorax. LUNGS: The lungs are well inflated and clear. No pneumonia or pulmonary edema. PLEURA: No pleural effusion or pneumothorax. BONES AND SOFT TISSUES: No focal osseous lesion. The soft tissues are normal. IMPRESSION: Interval placement of AICD lead without complication. No new cardiopulmonary process. Signed by: Dr. Campbell Casey MD on 08/04/2019 6:46 PM
--- NOTE | 2019-08-04 19:00 | NUR ---
Bedside report received from Abigail Yost RN. Care plan reviewed. Dr. King called at this time and ordered to restart amiodarone and continue gtt throughout the night.
--- NOTE | 2019-08-04 19:13 | Consultation ---
DATE OF CONSULTATION: 08/04/2019 REASON FOR CONSULTATION: Atrial fibrillation with rapid ventricular rate. HISTORY OF PRESENT ILLNESS: Mr. Rasmussen is a 64-year-old man with a history of chronic systolic cardiomyopathy with left ventricular ejection fraction of 30%, also with paroxysmal atrial fibrillation, who has received 3 prior ablations. The patient presented to the clinic with symptoms of atrial fibrillation with rapid ventricular rate and he was admitted to the hospital for an amiodarone drip and medical management. In the hospital, he had improvement in his heart rate down to 100-110; however, he was still feeling shortness of breath and palpitations. The patient is a known patient of Dr. Prescott, who performed prior ablations on him. Based on the fact that the patient has failed atrial fibrillation ablations, discussions were made with this patient and it was decided to pursue a biventricular ICD implantation and an AV jason ablation at a later date. REVIEW OF SYSTEMS: The patient denies having any fevers, chills, lightheadedness, dizziness, discharge from the eyes, nose, mouth, swelling lymph nodes in the neck or in the groin, chest pains. He does have palpitations. He denies wheezing, though he is short of breath. He has no abdominal pain, nausea, vomiting, dysuria, hematuria, swelling in his knees or joint pain, numbness, tingling, weakness, swelling of the legs or arms, skin rashes, ulcers, depression or anxiety. PAST MEDICAL HISTORY: As noted above. PAST SURGICAL HISTORY: Ablation and no other cardiac surgery. SOCIAL HISTORY: The patient does not drink any alcohol, smoke any cigarettes, or use any illicit drugs. FAMILY HISTORY: No family history of early cardiac . MEDICATIONS: Please see MAR. ALLERGIES: PLEASE SEE MAR. PHYSICAL EXAMINATION: VITAL SIGNS: Temperature is afebrile, heart rate is between 100 to 120s on atrial fibrillation, blood pressure is 170s/80s, respiratory rate is 18. GENERAL: No acute distress. The patient is alert and awake. HEENT: Normocephalic and atraumatic. Pupils are equal and reactive to light. LYMPH NODES: In particular submandibular lymphadenopathy appreciated. CVS: S1 and S2, irregular rate and irregular rhythm. RESPIRATORY: Good air entry globally. Coarse breath sounds. GI: Abdomen is soft and nontender. : No bladder fullness. No CVA tenderness. MUSCULOSKELETAL: No effusions or erythema noted in the knees or elbows bilaterally. EXTREMITIES: No edema in lower extremities or upper extremities bilaterally. NEUROLOGIC: No focal deficits, 4/5 strength in all extremities bilaterally. SKIN: No bruising or ulcers noted. PSYCH: Mood is normal. Answers questions appropriately. LABORATORY DATA: Noted. ASSESSMENT AND PLAN: Mr. Rasmussen is a 64-year-old man, who has paroxysmal atrial fibrillation, status post 3 prior ablations, 3 prior ablations, systolic cardiomyopathy, ejection fraction of 30%, who has been on goal-directed medical therapy for at least 3 months. The patient presents with atrial fibrillation with rapid ventricular and severely symptomatic. He will receive biventricular ICD as well as AV jason ablation at a later date. Thank you very much for consultation. Please feel free to call with any questions. DO RENITA LIZ/YAHAIRA /[id number]
[2019-08-04] MEDS: HYDROMORPHONE 1MG/1ML INJ IV PRN ×2 (20:05→22:31)
--- NOTE | 2019-08-04 21:29 | Operative Report ---
DATE OF PROCEDURE: 08/04/2019 SURGEON: VICKI BURDICK, DO Initial Procedure Note CLINICAL INDICATION: Mr. Rasmussen is a 64-year-old man with paroxysmal atrial fibrillation and 3 prior ablations, chronic systolic heart cardiomyopathy, who presents to the hospital with atrial fibrillation with rapid ventricular rate. The patient will receive a biventricular ICD and an AV jason ablation at a later date due to his atrial fibrillation with rapid ventricular rate. That is severely symptomatic and not amenable to medications or PVI ablations. PROCEDURES PERFORMED: 1. Implantation of [employer] biventricular ICD. 2. Left upper extremity venogram. 3. Moderate sedation. PROCEDURE IN DETAIL: After informed consent was obtained, the patient was prepped and draped in the usual manner. Moderate sedation was used for this procedure and a total of 6 mg IV Versed and 200 mcg IV fentanyl were given to the patient. For a total of 105 minutes, the patient was monitored by myself and the nurse. Preprocedure time-out and antibiotics were given to the patient. Left upper extremity venogram was performed, which demonstrated patency of the left axillary vein to the right atrium, after which 1% lidocaine was given to the left chest region and a 3 cm incision was created over the left chest. A pocket was then created over the pectoralis muscle and hemostasis was confirmed. Then, using modified Seldinger technique, 3 uncomplicated venous access was obtained and 3 wires were then subsequently inserted into the inferior vena cava. Afterwards, a 9-[place] Peel-Away sheath was inserted over one of the wires and a right ventricular ICD lead was inserted through that sheath and brought through the right ventricular apex using a pull-out technique. The lead was secured to the myocardium. Testing of the lead demonstrated adequate threshold and the sheath was peeled. Afterwards, a 9.5-[place]yr[place] Peel-Away sheath was inserted over the other wire and LV outer sheath along with an AL2 catheter and a Wholey wire was inserted through that sheath and brought to the coronary sinus ostium with fluoroscopic guidance. The coronary sinus was cannulated and the LV outer sheath was inserted into the coronary sinus and the AL2 catheter and the Wholey wire were then removed. Then, a 5-Kyrgyz balloon-tip catheter was inserted through the LV sheath and brought to the coronary sinus, and a venogram was performed of the coronary sinus which demonstrated a large patent coronary artery sinus with a middle cardiac vein proximally, a mid lateral branch as well as a distal lateral branch. The mid lateral branch was targeted for implantation and ultimately, an LV quadripolar lead was inserted through the middle lateral branch with Whisper wire for guidance. Testing of the lead demonstrated adequate threshold and fluoroscopy demonstrated adequate separation between the LV and RV leads. The outer sheath and a 9.5-[place]yr[place] Peel-Away sheath then split without dislodgement of the LV lead. Afterwards, a 6-[place] Peel-Away sheath was centered over the last wire and a right atrial pacing lead was inserted through that sheath and brought through the right atrial appendage using a preformed J-stylet. The lead was then secured myocardium. Testing of the lead demonstrated adequate threshold and this sheath was peeled. Ultimately, these were then sutured to muscle using 0 silk. The pocket was then irrigated thoroughly with antibiotic solution and hemostasis was again confirmed. A generator was brought to the field and the leads were then plugged into the generator. The generator and leads were then inserted into the pocket and the generator was sutured to the muscle using 0 silk. Then, in a standard 3-layer fashion, the pocket was closed using Vicryl and skin glue was applied afterwards. At the conclusion of the procedure, the patient tolerated the procedure well without any immediate complications. Fluoroscopy demonstrated normal cardiac silhouette, no evidence of pericardial effusion, no pneumothorax and no retained products within the pocket. IMPLANTED DEVICES: 1. [employer] model G247, serial #[id number]. 2. RA model 7741, serial #[id number]. 3. RV model 0293, serial #[id number]. 4. LV model 4671, serial #[id number]. MEASUREMENTS: 1. RA 5.1 mV, atrial fibrillation, 728 ohms. 2. RV 25 mV, 0.8 V at 0.5 milliseconds, 762 ohms, 76 ohms. 3. LV 6.4 mV, 2.1 V at 0.5 milliseconds (LV tip to RV), 1098 ohms. 4. Parameters. 5. DDDR 60/130. 6. VT1: 160 beats per minute, monitor only. 7. VT: 185 beats per minute, ATP, 41 joules x6. 8. VS: 210th beat per minute, quick convert, 41 joules x8. CONCLUSION: 1. Successful implantation of [employer] biventricular ICD. 2. No immediate complication. POSTPROCEDURE PLAN: 1. Bed rest for 6 hours post procedure. The patient can resume his prior diet. 2. Pain control and postprocedure antibiotics. 3. Chest x-ray, one-view, immediately postprocedure. The patient can receive a 2-view chest x-ray tomorrow if tolerable and advised to be interrogated tomorrow. 4. Incision to be kept dry and clean for at least 1 week. 5. Left arm to stay in a sling overnight. The patient remove the arm out of the sling tomorrow morning. For the next 2 weeks, the patient should use the arm for daily activities, but do not lift it over the shoulder and in any direction thereof more than 10 pounds. While sleeping at night, put the arm back in the sling. 6. The patient can follow up with Dr. Prescott 2 weeks after discharge. DO RENITA LIZ/YAHAIRA /[id number]
[2019-08-05] VITALS (9 sets, daily range): BP systolic 111–178; BP diastolic 61–98
[2019-08-05] MEDS: CLONAZEPAM 1 MG TAB PO PRN (02:15)
[2019-08-05] MEDS: HYDROCODONE/APAP 10MG-325MG TAB PO PRN ×2 (03:15→09:32)
[2019-08-05] MEDS ORDERED: VANCOMYCIN 1GM/NS 250 ML 250 ML IV ONE (06:00)
--- NOTE | 2019-08-05 07:00 | NUR ---
Report given to Abigail Yost RN. Care plan reviewed.
--- NOTE | 2019-08-05 07:00 | NUR ---
Per tae Martins for patient to discharge home once interrogation of the biV AICD is completed.
[2019-08-05] MEDS: AMIODARONE HCL 200 MG TAB PO SCH (07:05)
[2019-08-05] MEDS: LOSARTAN POTASSIUM 100 MG TAB PO SCH (07:06)
[2019-08-05] MEDS: METOPROLOL TARTRATE 25 MG TAB PO SCH (07:06)
[2019-08-05] MEDS: FENOFIBRATE 145 MG TAB PO SCH (07:06)
[2019-08-05] MEDS ORDERED: AMIODARONE HCL 200 MG TAB PO SCH (09:00)
--- NOTE | 2019-08-05 10:19 | NUR ---
D/C summary Principal Dx: A.fib with RVR Secondary Dx: DM2 HTN GERD Diastolic CHF HLD Mild-mod AR Obesity BMI 38 PLAN AV blockade with BB and amio Cardio eval hab1c/lipids AICD pending; CCT>35mins 08/05 s/p AICD placement d/c home f/u pcp 1 week and cardiology 1 week stable d/c>35mins Oscar Ervin MD, PhD.
--- NOTE | 2019-08-05 10:30 | NUR ---
Dr Ervin to bedside; discharge teaching completed.
--- NOTE | 2019-08-05 11:08 | NUR ---
Discharged via wheelchair in the care of . States understanding that he will follow up with PCP, market research interviewer, and EP as discussed in discharge summary. States understanding that he will fill and take Amiodarone and Metoprolol as per written Rx.
--- NOTE | 2019-08-05 12:13 | Diagnostic Imaging Report ---
EXAMINATION: CHEST 2 VIEWS INDICATION: ^s/p BIV AICD ^[id number] ^1043 ^Y COMPARISON: 08/04/2019 FINDINGS: PA and lateral views TUBES and LINES: Left chest wall triple lead cardiac device in place with distal tips projecting over right atrium, right ventricle, and coronary sinus. LUNGS: Lungs are well inflated. Pulmonary vascular congestion. PLEURA: No pleural effusion or pneumothorax. HEART AND MEDIASTINUM: The cardiac silhouette is mildly enlarged. BONES AND SOFT TISSUES: No acute osseous lesion. Soft tissues are unremarkable. UPPER ABDOMEN: No free air under the diaphragm. IMPRESSION: Mildly enlarged cardiac silhouette and pulmonary vascular congestion. Signed by: Dr. Alejandro Ackerman MD on 08/05/2019 12:10 PM
--- NOTE | 2019-08-18 07:08 | NUR ---
ADDENDUM- Also had [facility] D/C summary Principal Dx: A.fib with RVR [facility] Secondary Dx: DM2 HTN GERD Diastolic CHF HLD Mild-mod AR Obesity BMI 38 PLAN AV blockade with BB and amio Cardio eval hab1c/lipids AICD pending; CCT>35mins 08/05 s/p AICD placement d/c home f/u pcp 1 week and cardiology 1 week stable d/c>35mins Oscar Ervin MD, PhD.
== END 2019-08-05 11:00 | disposition home or self-care (01) | DRG 227 ==
LOC: ER 10:42 → ERHOLD 12:36 → ICU 14:18
PROVIDERS: ADMIT Internal Medicine; ATTEND Internal Medicine
PROC: 0JH609Z Insertion of Cardiac Resynchronization Defibrillator Pulse Generator into Chest Subcutaneous Tissue and Fascia, Open Approach (ICD-10-PCS; principal; 2019-08-03)
PROC: 02HL3KZ Insertion of Defibrillator Lead into Left Ventricle, Percutaneous Approach (ICD-10-PCS; 2019-08-03)
PROC: 02HK3KZ Insertion of Defibrillator Lead into Right Ventricle, Percutaneous Approach (ICD-10-PCS; 2019-08-03)
PROC: 02H63KZ Insertion of Defibrillator Lead into Right Atrium, Percutaneous Approach (ICD-10-PCS; 2019-08-03)
DX: I48.0 Paroxysmal atrial fibrillation (principal); I50.42 Chronic combined systolic (congestive) and diastolic (congestive) heart failure; I42.9 Cardiomyopathy, unspecified; G47.33 Obstructive sleep apnea (adult) (pediatric); F17.210 Nicotine dependence, cigarettes, uncomplicated; I11.0 Hypertensive heart disease with heart failure; H54.61 Unqualified visual loss, right eye, normal vision left eye; G89.29 Other chronic pain; M54.9 Dorsalgia, unspecified; K21.9 Gastro-esophageal reflux disease without esophagitis; G47.00 Insomnia, unspecified; I27.20 Pulmonary hypertension, unspecified; E66.9 Obesity, unspecified; Z68.38 Body mass index [BMI] 38.0-38.9, adult; E11.9 Type 2 diabetes mellitus without complications
CPT/HCPCS: 33225; 33249; 36415; 71045; 71046; 80048; 80053; 80061; 82550; 82553; 82948; 83036; 83880; 84484; 85025; 93005; 99152; 99153; 99284; C1777; C1882; C1887; C1898; J1170; J1200; J2001; J2250; J2930; J3010; J3370; J7030; Q9967

== ENCOUNTER 2023-08-17 20:32 | Inpatient (IN) | payer MEDICARE ==
[~2023-08-17] VITALS: Ht 175.3 cm; Wt 112.5 kg
[~2023-08-17 20:32] MED LIST changes: +HYDROCODON-ACE1 EAC9 PO
[2023-08-17] MEDS ORDERED: SODIUM CHLORIDE 0.9% 1000ML 1,000 ML IV ONE (21:00)
[2023-08-17 21:24] LABS: ALBUMIN 3.8 g/dL (3.5-5.0); ALBUMIN/GLOBULIN RATIO 1.1 (0.8-2.0); ANION GAP 16.3 mmol/L (8-16); BILIRUBIN,TOTAL 1.1 mg/dL (0.2-1.2); CALCIUM 9.2 mg/dL (8.4-10.2); CREATININE, SERUM 4.21 mg/dL (0.72-1.25); TOTAL PROTEIN 7.2 g/dL (6.5-8.1)
[2023-08-17 21:25] LABS: POTASSIUM 5.3 mmol/L (3.5-5.1)
[2023-08-17 21:28] LABS: BASOPHILS % 0.4 % (0.0-1.0); EOSINOPHILS % 0.3 % (0.0-6.0); HEMATOCRIT 46.9 % (38.2-49.6); HEMOGLOBIN 15.7 g/dL (14.0-18.0); LYMPHOCYTES # (AUTO) 0.9 (1.0-3.2); LYMPHOCYTES % 12.1 % (18.0-39.1); MEAN CORPUSCULAR HEMOGLOBIN 30.6 pg (28-32); MEAN CORPUSCULAR HGB CONC 33.5 g/dL (31-35); MEAN CORPUSCULAR VOLUME 91.4 fL (81-99); MONOCYTES # (AUTO) 1.3 (0.2-0.8); MONOCYTES % 17.9 % (4.4-11.3); NEUTROPHILS # (AUTO) 4.9 (2.1-6.9); PLATELET COUNT 179 x10e3/uL (140-360); RED BLOOD COUNT 5.13 x10e6/uL (4.3-5.7); RED CELL DISTRIBUTION WIDTH 15.8 % (11.7-14.4); WHITE BLOOD COUNT 7.04 x10e3/uL (4.8-10.8)
[2023-08-17] MEDS ORDERED: DEXTROSE 50% SYRINGE 50 ML IV PRN (22:00)
[2023-08-17] MEDS ORDERED: SODIUM CHLORIDE 0.9% 1000ML 1,000 ML IV SCH (22:00)
[2023-08-17] MEDS ORDERED: SODIUM CHLORIDE 0.9% 1000ML 1,000 ML ONE (22:09)
[2023-08-17 23:30] VITALS: BP 90/53; PULSE 71; RESP 21; TEMP 98.9; O2SAT 100
[2023-08-17 23:46] VITALS: BP 87/45; PULSE 69; RESP 20; O2SAT 100
[2023-08-17 23:47] VITALS: BP 87/45; PULSE 70; RESP 14; TEMP 98.9; O2SAT 100
[2023-08-18] VITALS (26 sets, daily range): BP systolic 76–145; BP diastolic 37–104; PULSE 68–92; RESP 16–32; TEMP 97.7–99.2; O2SAT 94–100
[2023-08-18] MEDS ORDERED: ENTRESTO 97 MG1 EACH PO (00:17)
[2023-08-18] MEDS ORDERED: ELIQUIS5 MG PO (00:17)
[2023-08-18] MEDS ORDERED: COREG12.5 MG PO (00:17)
[2023-08-18] MEDS ORDERED: K-DUR10 MEQ PO (00:17)
[2023-08-18] MEDS ORDERED: AMITRIPTYLINE H25 MG PO (01:04)
[2023-08-18] MEDS ORDERED: AMIODARONE HCL200 MG PO (01:04)
[2023-08-18] MEDS ORDERED: SPIRONOLACTONE25 MG PO (01:04)
[2023-08-18] MEDS ORDERED: FENOFIBRATE145 MG PO (01:04)
[2023-08-18] MEDS ORDERED: TORSEMIDE100 MG PO (01:04)
[2023-08-18 05:46] LABS: BASOPHILS % 0.2 % (0.0-1.0); EOSINOPHILS % 0.2 % (0.0-6.0); HEMOGLOBIN 14.8 g/dL (14.0-18.0); LYMPHOCYTES # (AUTO) 1.2 (1.0-3.2); LYMPHOCYTES % 21.6 % (18.0-39.1); MEAN CORPUSCULAR HEMOGLOBIN 30.8 pg (28-32); MEAN CORPUSCULAR HGB CONC 33.6 g/dL (31-35); MEAN CORPUSCULAR VOLUME 91.5 fL (81-99); MONOCYTES # (AUTO) 1.1 (0.2-0.8); MONOCYTES % 19.8 % (4.4-11.3); NEUTROPHILS # (AUTO) 3.3 (2.1-6.9); NEUTROPHILS % 57.3 % (38.7-80.0); PLATELET COUNT 147 x10e3/uL (140-360); RED BLOOD COUNT 4.81 x10e6/uL (4.3-5.7); RED CELL DISTRIBUTION WIDTH 15.8 % (11.7-14.4)
[2023-08-18 06:27] LABS: ALBUMIN 3.4 g/dL (3.5-5.0); ALBUMIN/GLOBULIN RATIO 1.1 (0.8-2.0); ANION GAP 14.9 mmol/L (8-16); CALCIUM 8.6 mg/dL (8.4-10.2); CREATININE, SERUM 3.4 mg/dL (0.72-1.25); POTASSIUM 4.9 mmol/L (3.5-5.1); TOTAL PROTEIN 6.4 g/dL (6.5-8.1)
[2023-08-18 06:58] LABS: TROPONIN I 0.016 ng/mL (0-0.300)
[2023-08-18] MEDS: INSULIN REGULAR, HUMAN 100 UNIT/1 ML SQ SCH ×4 (07:30→20:00)
[2023-08-18 08:26] LABS: CHOL/HDL RATIO 3.5 (3.9-4.7)
[2023-08-18] MEDS: SODIUM BICARBONATE 8.4% 50 ML in SODIUM CHLORIDE 0.45% 1,000 ML IV SCH ×2 (08:37→19:07)
[2023-08-18 08:41] LABS: THYROID STIMULATING HORMONE 1.63 uIU/mL (0.350-4.940)
[2023-08-18 16:46] LABS: ANION GAP 16.1 mmol/L (8-16); CALCIUM 8.8 mg/dL (8.4-10.2); CREATININE, SERUM 2.63 mg/dL (0.72-1.25)
[2023-08-18 16:49] LABS: POTASSIUM 5.1 mmol/L (3.5-5.1)
[2023-08-18 17:06] LABS: TROPONIN I 0.026 ng/mL (0-0.300)
[2023-08-18] MEDS: ROPINIROLE HCL 1 MG TAB PO SCH (20:00)
[2023-08-18] MEDS: CLONAZEPAM 1 MG TAB PO PRN (21:06)
[2023-08-19] VITALS (18 sets, daily range): BP systolic 83–160; BP diastolic 63–99; PULSE 62–78; RESP 17–30; TEMP 97.7–99.2; O2SAT 90–100
[2023-08-19] MEDS: SODIUM BICARBONATE 8.4% 50 ML in SODIUM CHLORIDE 0.45% 1,000 ML IV SCH ×2 (04:54→16:22)
[2023-08-19] MEDS: ONDANSETRON HCL INJ 2MG/ML 2ML 2 MG/ML VIAL IV PRN ×3 (04:54→15:35)
[2023-08-19 05:18] LABS: BASOPHILS % 0.3 % (0.0-1.0); HEMATOCRIT 46.6 % (38.2-49.6); HEMOGLOBIN 15.6 g/dL (14.0-18.0); LYMPHOCYTES # (AUTO) 1.3 (1.0-3.2); LYMPHOCYTES % 20.3 % (18.0-39.1); MEAN CORPUSCULAR HEMOGLOBIN 30.4 pg (28-32); MEAN CORPUSCULAR HGB CONC 33.5 g/dL (31-35); MEAN CORPUSCULAR VOLUME 90.8 fL (81-99); MONOCYTES # (AUTO) 1.3 (0.2-0.8); NEUTROPHILS # (AUTO) 3.8 (2.1-6.9); NEUTROPHILS % 58.9 % (38.7-80.0); PLATELET COUNT 159 x10e3/uL (140-360); RED BLOOD COUNT 5.13 x10e6/uL (4.3-5.7); RED CELL DISTRIBUTION WIDTH 15.6 % (11.7-14.4)
[2023-08-19 05:54] LABS: ANION GAP 16.7 mmol/L (8-16); CALCIUM 8.8 mg/dL (8.4-10.2); CREATININE, SERUM 1.92 mg/dL (0.72-1.25); POTASSIUM 4.7 mmol/L (3.5-5.1)
[2023-08-19 06:28] LABS: TROPONIN I 0.016 ng/mL (0-0.300)
[2023-08-19] MEDS: INSULIN REGULAR, HUMAN 100 UNIT/1 ML SQ SCH ×4 (07:30→20:02)
[2023-08-19] MEDS: TRAMADOL HCL 50 MG TAB PO PRN (15:25)
[2023-08-19] MEDS ORDERED: CHLORASEPTIC SPRAY 177 ML BTL MM PRN (19:15)
[2023-08-19] MEDS: ROPINIROLE HCL 1 MG TAB PO SCH (20:58)
[2023-08-19] MEDS: CLONAZEPAM 1 MG TAB PO PRN (22:56)
[2023-08-20] VITALS (8 sets, daily range): BP systolic 110–146; BP diastolic 61–79; PULSE 62–71; RESP 18–22; TEMP 97.7–98.9; O2SAT 98–99
[2023-08-20] MEDS: SODIUM BICARBONATE 8.4% 50 ML in SODIUM CHLORIDE 0.45% 1,000 ML IV SCH ×3 (01:57→23:32)
[2023-08-20] MEDS: TRAMADOL HCL 50 MG TAB PO PRN ×3 (04:16→10:40)
[2023-08-20 06:31] LABS: BASOPHILS % 0.1 % (0.0-1.0); EOSINOPHILS % 0.3 % (0.0-6.0); HEMATOCRIT 43.8 % (38.2-49.6); HEMOGLOBIN 14.6 g/dL (14.0-18.0); LYMPHOCYTES % 14.1 % (18.0-39.1); MEAN CORPUSCULAR HEMOGLOBIN 30.7 pg (28-32); MEAN CORPUSCULAR HGB CONC 33.3 g/dL (31-35); MONOCYTES # (AUTO) 0.7 (0.2-0.8); MONOCYTES % 9.8 % (4.4-11.3); NEUTROPHILS # (AUTO) 5.3 (2.1-6.9); NEUTROPHILS % 75.4 % (38.7-80.0); PLATELET COUNT 144 x10e3/uL (140-360); RED BLOOD COUNT 4.76 x10e6/uL (4.3-5.7); RED CELL DISTRIBUTION WIDTH 15.4 % (11.7-14.4); WHITE BLOOD COUNT 7.07 x10e3/uL (4.8-10.8)
[2023-08-20 07:02] LABS: ANION GAP 12.9 mmol/L (8-16); CALCIUM 8.6 mg/dL (8.4-10.2); CREATININE, SERUM 1.47 mg/dL (0.72-1.25); POTASSIUM 3.9 mmol/L (3.5-5.1)
[2023-08-20] MEDS: INSULIN REGULAR, HUMAN 100 UNIT/1 ML SQ SCH ×4 (07:30→19:33)
[2023-08-20] MEDS ORDERED: SODIUM CHLORIDE 0.45% 1,000 ML ONE (12:29)
[2023-08-20] MEDS: ROPINIROLE HCL 1 MG TAB PO SCH (20:51)
[2023-08-20] MEDS: CLONAZEPAM 1 MG TAB PO PRN (21:57)
[2023-08-21 00:05] VITALS: BP 132/62; PULSE 62; RESP 18; TEMP 97.8; O2SAT 97
[2023-08-21] MEDS: TRAMADOL HCL 50 MG TAB PO PRN ×2 (01:41→08:44)
[2023-08-21 04:00] VITALS: BP 131/62; PULSE 68; RESP 18; TEMP 97.1; O2SAT 98
[2023-08-21] MEDS: INSULIN REGULAR, HUMAN 100 UNIT/1 ML SQ SCH (07:30)
[2023-08-21 08:48] VITALS: BP 130/68; PULSE 70; RESP 18; TEMP 98; O2SAT 95
[2023-08-21 09:15] LABS: BASOPHILS % 0.4 % (0.0-1.0); EOSINOPHILS % 0.8 % (0.0-6.0); HEMATOCRIT 42.7 % (38.2-49.6); HEMOGLOBIN 14.2 g/dL (14.0-18.0); LYMPHOCYTES # (AUTO) 1.1 (1.0-3.2); LYMPHOCYTES % 21.9 % (18.0-39.1); MEAN CORPUSCULAR HEMOGLOBIN 30.3 pg (28-32); MEAN CORPUSCULAR HGB CONC 33.3 g/dL (31-35); MEAN CORPUSCULAR VOLUME 91.2 fL (81-99); MONOCYTES # (AUTO) 0.5 (0.2-0.8); NEUTROPHILS # (AUTO) 3.2 (2.1-6.9); NEUTROPHILS % 65.5 % (38.7-80.0); PLATELET COUNT 143 x10e3/uL (140-360); RED BLOOD COUNT 4.68 x10e6/uL (4.3-5.7); WHITE BLOOD COUNT 4.93 x10e3/uL (4.8-10.8)
[2023-08-21 09:16] VITALS: BP 130/68; PULSE 70; RESP 18; TEMP 98; O2SAT 95
[2023-08-21 09:42] LABS: CALCIUM 8.6 mg/dL (8.4-10.2); CREATININE, SERUM 1.29 mg/dL (0.72-1.25)
[2023-08-21] MEDS ORDERED: PROVENTIL HFA6.7 GM INH (10:18)
[2023-08-21] MEDS ORDERED: SODIUM BICARBO650 MG PO (10:18)
[2023-08-21] MEDS ORDERED: SENNA LAX8.6 MG PO (10:18)
[2023-08-21] MEDS ORDERED: DOCUSATE SODIU100 MG PO (10:18)
[2023-08-21] MEDS ORDERED: SENNOSIDES 8.6 MG TAB PO SCH (11:00)
[2023-08-21] MEDS ORDERED: ALBUTEROL/IPRATROPIUM 3 ML NEB NEB ONE (11:00)
[2023-08-21] MEDS ORDERED: DOCUSATE SODIUM 100 MG CAP PO ONE (11:00)
[2023-08-21] MEDS ORDERED: FUROSEMIDE INJ 10 MG/ML 2 ML VIAL IV ONE (11:00)
[2023-08-21] MEDS ORDERED: MAGNESIUM HYDROXIDE 30 ML UDC PO ONE (11:00)
[2023-08-21 12:07] VITALS: PULSE 65; RESP 18; O2SAT 97
== END 2023-08-21 13:06 | disposition home or self-care (01) | DRG 315 ==
LOC: ER 20:37 → MERGE 21:58 → ERHOLD 21:58 → ICU 23:11 → MED/SURG 08-19 11:24
PROVIDERS: ADMIT Internal Medicine; ATTEND Internal Medicine
DX: I95.89 Other hypotension (principal); I50.22 Chronic systolic (congestive) heart failure; N17.9 Acute kidney failure, unspecified; E87.5 Hyperkalemia; E11.9 Type 2 diabetes mellitus without complications; I48.0 Paroxysmal atrial fibrillation; K59.09 Other constipation; I11.0 Hypertensive heart disease with heart failure; E78.5 Hyperlipidemia, unspecified; K59.00 Constipation, unspecified; G25.81 Restless legs syndrome; Z95.810 Presence of automatic (implantable) cardiac defibrillator
CPT/HCPCS: 36415; 51700; 71045; 76770; 80048; 80053; 80061; 82550; 82948; 83036; 83880; 84443; 84484; 85025; 93005; 94640; 94799; 99284; J1940; J2405; J7030; U0002

== ENCOUNTER → 2024-11-21 | Day surgery (SDC) | payer MEDICARE ==
[2024-11-20 10:29] LABS: BASOPHILS % 0.4 % (0.0-1.0); EOSINOPHILS # (AUTO) 0.1 (0.0-0.4); EOSINOPHILS % 1.4 % (0.0-6.0); HEMOGLOBIN 15.2 g/dL (14.0-18.0); LYMPHOCYTES # (AUTO) 1.3 (1.0-3.2); LYMPHOCYTES % 18.7 % (18.0-39.1); MEAN CORPUSCULAR HEMOGLOBIN 31.7 pg (28-32); MEAN CORPUSCULAR HGB CONC 33.8 g/dL (31-35); MEAN CORPUSCULAR VOLUME 93.8 fL (81-99); MONOCYTES # (AUTO) 0.7 (0.2-0.8); MONOCYTES % 10.5 % (4.4-11.3); NEUTROPHILS # (AUTO) 4.8 (2.1-6.9); NEUTROPHILS % 68.6 % (38.7-80.0); PLATELET COUNT 156 x10e3/uL (140-360); RED CELL DISTRIBUTION WIDTH 12.9 % (11.7-14.4); WHITE BLOOD COUNT 6.94 x10e3/uL (4.8-10.8)
[2024-11-20 11:00] LABS: CALCIUM 9.9 mg/dL (8.4-10.2); CREATININE, SERUM 1.11 mg/dL (0.72-1.25)
[~2024-11-21] MED LIST changes: +ACETAMINOPHEN 1000 MG/100 ML 100 ML IV ONE; +ACETAMINOPHEN 1000 MG/100 ML IV PRN; +AMITRIPTYLINE H25 MG PO; +ASPIRIN 325 MG TAB PO SCH; +CELECOXIB 100 MG CAP PO SCH; +COREG12.5 MG PO; +DIPHENHYDRAMINE HCL INJ 50 MG/ML VIAL IV PRN; +DOCUSATE SODIU100 MG PO; +DOCUSATE SODIUM 100 MG CAP PO PRN; +ELIQUIS5 MG PO; +ENTRESTO 97 MG1 EACH PO; +FENOFIBRATE145 MG PO; +FENTANYL CITRATE/PF 100MCG/2 ML INJ ONE; +HYDROCODONE/APAP 5MG-325MG TAB PO PRN; +K-DUR10 MEQ PO; +LIDOCAINE HCL 2% LOCAL INJ 5 ML SDV VIAL INJ ONE; +LYRICA75 MG PO; +ONDANSETRON HCL INJ 2MG/ML 2ML 2 MG/ML VIAL IV PRN; +ONDANSETRON HCL INJ 2MG/ML 2ML 2 MG/ML VIAL ONE; +PROPOFOL IV EMULSION 10 MG/ML 20 ML VIAL ONE; +PROVENTIL HFA6.7 GM INH; +ROPINIROLE HCL1 MG PO; +ROPIVACAINE/EPI/CLONIDINE/KET 50 ML SYRINGE INJ ONE; +ROSUVASTATIN CA10 MG PO; +SENNA LAX8.6 MG PO; +SEVOFLURANE INHAL SOLN 250 ML PEN BTL ONE; +SODIUM BICARBO650 MG PO; +SODIUM CHLORIDE 0.9% 1000ML 1,000 ML IV SCH; +SODIUM CHLORIDE 0.9% 200 ML ONE; +SPIRONOLACTONE25 MG PO; +TORSEMIDE100 MG PO; +TRANEXAMIC ACID 1,000 MG/10 ML ML ONE
[2024-11-21] MEDS: LACTATED RINGER'S 1,000 ML ONE (07:59)
[2024-11-21] MEDS: CELECOXIB 200 MG CAP ONE (08:00)
[2024-11-21] MEDS: DEXAMETHASONE SOD PHOS 10 MG/1 ML VIAL ONE (08:01)
[2024-11-21] MEDS: GABAPENTIN 300 MG CAP ONE (08:01)
[2024-11-21] MEDS: CEFAZOLIN SODIUM 2 GM ONE (08:02)
[2024-11-21 11:45] VITALS: TEMP 97.8
[2024-11-21 13:40] VITALS: BP 153/78; PULSE 78; RESP 18; O2SAT 97
[2024-11-21] MEDS: HYDROCODONE/APAP 7.5MG-325MG 1 EA TAB PO PRN (13:42)
== END | disposition home health service (06) ==
LOC: OR 07:19
PROVIDERS: ATTEND Specialist
DX: M17.12 Unilateral primary osteoarthritis, left knee (principal); M25.762 Osteophyte, left knee; E11.9 Type 2 diabetes mellitus without complications; I25.10 Atherosclerotic heart disease of native coronary artery without angina pectoris; I48.91 Unspecified atrial fibrillation; I11.0 Hypertensive heart disease with heart failure; I50.9 Heart failure, unspecified; J44.9 Chronic obstructive pulmonary disease, unspecified; F41.9 Anxiety disorder, unspecified; Z88.1 Allergy status to other antibiotic agents; Z91.041 Radiographic dye allergy status; Z01.810 Encounter for preprocedural cardiovascular examination; Z01.812 Encounter for preprocedural laboratory examination; Z01.818 Encounter for other preprocedural examination; Z79.02 Long term (current) use of antithrombotics/antiplatelets; Z79.899 Other long term (current) drug therapy; Z95.810 Presence of automatic (implantable) cardiac defibrillator
CPT/HCPCS: 27447; 36415; 71046; 73560; 80048; 85025; 86850; 86900; 93005; 97110; 97116; 97161; C1713; C1776 ×3; J0131; J1100; J2003; J2405; J2704; J3010; J7050; J7121